=== PATIENT | male | born 1950 | race Caucasian/White ===

== ENCOUNTER 2016-09-18 10:21 | Emergency (ER) | payer OTHER, MEDICARE ==
[2016-09-18] MEDS ORDERED: Sodium Chloride 0.9% 10 ML Syringe FLUSH PRN (10:55)
[2016-09-18] MEDS ORDERED: Sodium Chloride 0.9% 1,000 ML IV ONE (10:57)
[2016-09-18] MEDS ORDERED: Ondansetron 4 MG/2 ML SDV IVPUSH ONE (10:57)
[2016-09-18 11:24] LABS: CHLORIDE,CL 105 mmol/L (98-107); SODIUM,NA 141 mmol/L (136-145)
--- NOTE | 2016-09-18 13:33 | EDM.PDOC ---
ED HPI GENERAL MEDICAL PROBLEM - General Chief Complaint: General Stated Complaint: ER FROM CLINIC Middle Epigastric Pain Score (Numeric/FACES): 2 - Related Data Allergies Allergy/AdvReac Type Severity Reaction Status Date / Time No Known Allergies Allergy Verified 09/18/16 11:02 Home Meds: Home Meds Aspirin [Halfprin] 81 mg PO DAILY 05/14/13 [History] Citalopram Hydrobromide [Celexa] 40 mg PO DAILY 05/14/13 [History] Ranitidine [Zantac] 150 mg PO BID 05/14/13 [History] traZODone 200 mg PO BEDTIME 10/08/14 [History] Docusate Sodium [Colace Clear] 50 mg BID 09/18/16 [History] Melatonin/Pyridoxine HCl (B6) [Melatonin 3 mg Tablet] 3 mg BEDTIME 09/18/16 [ History] Triamcinolone Acetonide [Triamcinolone Acetonide 0.1% Crm] 1 appful BID [History] diphenhydrAMINE [Benadryl] 25 mg PO BEDTIME 09/18/16 [History] Past Medical History HEENT History: Reports: Impaired Vision Cardiovascular History: Reports: High Cholesterol, Other (See Below) Other Cardiovascular History: Unspecified Atrial septal defect. pericarditis. hypotension Neurological History: Reports: CVA Dermatologic History: Reports: Eczema - Past Surgical History GI Surgical History: Reports: Cholecystectomy Musculoskeletal Surgical History: Reports: Arthroscopic Knee Social & Family History - Tobacco Use Smoking Status *Q: Former Smoker Years of Tobacco use: 20 Used Tobacco, but Quit: Yes Month Tobacco Last Used: unknown Second Hand Smoke Exposure: No - Alcohol Use Days Per Week of Alcohol Use: 0 - Recreational Drug Use Recreational Drug Use: No Course - Vital Signs Last Recorded V/S: Last Vital Signs Temp 37.4 C 09/18/16 10:25 Pulse 102 H 09/18/16 12:19 Resp 18 09/18/16 11:45 BP 89/61 L 09/18/16 12:19 Pulse Ox 96 09/18/16 10:25 - Orders/Labs/Meds Orders: Active Orders 24 hr Category Date Time Status EKG Documentation Completion [RC] STAT Care 09/18/16 10:55 Active Abdomen Series w Chest 1V [CR] Stat Exams 09/18/16 10:56 Taken Sodium Chloride 0.9% [Saline Flush] Med 09/18/16 10:55 Active 10 ml FLUSH ASDIRECTED PRN Peripheral IV Insertion Adult [OM.PC] Routine Oth 09/18/16 10:56 Ordered Medication Orders Sodium Chloride (Saline Flush) 10 ml FLUSH ASDIRECTED PRN PRN Reason: Keep Vein Open Labs: Laboratory Tests 09/18/16 09/18/16 09/18/16 Range/Units 10:42 10:42 10:42 WBC 16.4 H (4.0-10.0) x10^3/uL RBC 4.91 (4.5-6.0) x10^6/uL Hgb 16.2 D (14.0-18.0) g/dL Hct 45.9 (40.0-52.0) % MCV 93.5 H (78.0-93.0) fL MCH 33.0 H (26.0-32.0) pg MCHC 35.3 (32.0-36.0) g/dL RDW Coeff of Renan 12.5 (10.0-15.0) % Plt Count 184 (130-400) x10^3/uL Neut % (Auto) 90.1 H (50.0-80.0) % Lymph % (Auto) 3.8 L (25.0-50.0) % [place] % (Auto) 5.5 (2.0-11.0) % Eos % (Auto) 0.5 (0.0-4.0) % Baso % (Auto) 0.1 L (0.2-1.2) % PT 10.9 D (10.0-12.8) SEC INR 1.0 L (2.0-3.5) Sodium 141 (136-145) mmol/L Potassium 3.7 (3.5-5.1) mmol/L Chloride 105 (98-107) mmol/L Carbon Dioxide 25 (21-32) mmol/L BUN 11 (7-18) mg/dL Creatinine 1.2 (0.70-1.30) mg/dL Est Cr Clr Drug Dosing TNP Estimated GFR (MDRD) > 60 Glucose 141 H (74-106) mg/dL Calcium 8.7 (8.5-10.1) mg/dL Corrected Calcium 9.02 (8.5-10.1) mg/dL Total Bilirubin 1.3 H (0.2-1.0) mg/dL AST 18 (15-37) U/L ALT 28 (16-63) U/L Alkaline Phosphatase 72 (46-116) U/L Troponin I < 0.017 (<=0.056) ng/mL C-Reactive Protein 1.7 H (<=0.9) mg/dL Total Protein 6.6 (6.4-8.2) g/dL Albumin 3.6 (3.4-5.0) g/dL Globulin 3.0 Albumin/Globulin Ratio 1.20 TSH, Ultra Sensitive 0.487 (0.358-3.74) uIU/mL Urine Color (YELLOW) Urine Appearance (CLEAR) Urine pH (5.0-8.0) Ur Specific [place] Urine Protein (NEGATIVE) mg/dL Urine Glucose (UA) (NEGATIVE) mg/dL Urine Ketones (NEGATIVE) mg/dL Urine Occult Blood (NEGATIVE) Urine Nitrite (NEGATIVE) Urine Bilirubin (NEGATIVE) Urine Urobilinogen (0.2) EU/dL Ur Leukocyte Esterase (NEGATIVE) Urine RBC (NOT SEEN) /HPF Urine WBC (NOT SEEN) /HPF Ur Squamous Epith Cells (NEGATIVE) /HPF Urine Bacteria (NEGATIVE) /HPF Urine Mucus (NEGATIVE) /LPF 09/18/16 Range/Units 12:46 WBC (4.0-10.0) x10^3/uL RBC (4.5-6.0) x10^6/uL Hgb (14.0-18.0) g/dL Hct (40.0-52.0) % MCV (78.0-93.0) fL MCH (26.0-32.0) pg MCHC (32.0-36.0) g/dL RDW Coeff of Renan (10.0-15.0) % Plt Count (130-400) x10^3/uL Neut % (Auto) (50.0-80.0) % Lymph % (Auto) (25.0-50.0) % [place] % (Auto) (2.0-11.0) % Eos % (Auto) (0.0-4.0) % Baso % (Auto) (0.2-1.2) % PT (10.0-12.8) SEC INR (2.0-3.5) Sodium (136-145) mmol/L Potassium (3.5-5.1) mmol/L Chloride (98-107) mmol/L Carbon Dioxide (21-32) mmol/L BUN (7-18) mg/dL Creatinine (0.70-1.30) mg/dL Est Cr Clr Drug Dosing Estimated GFR (MDRD) Glucose (74-106) mg/dL Calcium (8.5-10.1) mg/dL Corrected Calcium (8.5-10.1) mg/dL Total Bilirubin (0.2-1.0) mg/dL AST (15-37) U/L ALT (16-63) U/L Alkaline Phosphatase (46-116) U/L Troponin I (<=0.056) ng/mL C-Reactive Protein (<=0.9) mg/dL Total Protein (6.4-8.2) g/dL Albumin (3.4-5.0) g/dL Globulin Albumin/Globulin Ratio TSH, Ultra Sensitive (0.358-3.74) uIU/mL Urine Color Yellow (YELLOW) Urine Appearance Clear (CLEAR) Urine pH 6.5 (5.0-8.0) Ur Specific [place] 1.010 Urine Protein Trace H (NEGATIVE) mg/dL Urine Glucose (UA) Negative (NEGATIVE) mg/dL Urine Ketones Negative (NEGATIVE) mg/dL Urine Occult Blood Negative (NEGATIVE) Urine Nitrite Negative (NEGATIVE) Urine Bilirubin Negative (NEGATIVE) Urine Urobilinogen 0.2 (0.2) EU/dL Ur Leukocyte Esterase Negative (NEGATIVE) Urine RBC Not seen (NOT SEEN) /HPF Urine WBC 0-5 (NOT SEEN) /HPF Ur Squamous Epith Cells Rare (NEGATIVE) /HPF Urine Bacteria Not seen (NEGATIVE) /HPF Urine Mucus Rare H (NEGATIVE) /LPF Meds: Medications Generic Name Dose Route Start Last Admin Trade Name Freq PRN Reason Stop Dose Admin Sodium Chloride 10 ml 09/18/16 10:55 Saline Flush FLUSH ASDIRECTED PRN Keep Vein Open Discontinued Medications Generic Name Dose Route Start Last Admin Trade Name Freq PRN Reason Stop Dose Admin Sodium Chloride 1,000 mls @ 1,000 mls/hr 09/18/16 10:57 09/18/16 10:42 Normal Saline IV 09/18/16 11:56 1,000 mls/hr .BOLUS ONE Administration Ondansetron HCl 4 mg 09/18/16 10:57 09/18/16 11:03 Zofran IVPUSH 09/18/16 10:58 4 mg ONETIME ONE Administration Departure - Discharge Information Referrals: Adrian Zamudio MD [Primary Care Provider] - Forms: ED Department Discharge, Interfacility Transfer EMTALA - My Orders Last 24 Hours: My Active Orders 09/18/16 10:55 EKG Documentation Completion [RC] STAT Sodium Chloride 0.9% [Saline Flush] 10 ml FLUSH ASDIRECTED PRN 09/18/16 10:56 Abdomen Series w Chest 1V [CR] Stat Peripheral IV Insertion Adult [OM.PC] Routine - Assessment/Plan Last 24 Hours: My Active Orders 09/18/16 10:55 EKG Documentation Completion [RC] STAT Sodium Chloride 0.9% [Saline Flush] 10 ml FLUSH ASDIRECTED PRN 09/18/16 10:56 Abdomen Series w Chest 1V [CR] Stat Peripheral IV Insertion Adult [OM.PC] Routine
[2016-09-18 18:40] VITALS: BP 89/63
--- NOTE | 2016-09-21 08:23 | ER ---
Date of Service: 09/18/2016 SUBJECTIVE: Paul presents to the emergency room with complaints of lightheadedness, weakness, and vomiting. The patient states that he has been experiencing vomiting for the past several days and had his blood pressure checked at home by Home Health and was found to have a systolic blood pressure in the 70s. The patient subsequently made an appointment at the clinic and again was found to be quite hypotensive, and they subsequently sent him to the emergency room for further evaluation and treatment. The patient states that he has a history of blood pressures on the lower side of normal with systolic blood pressures commonly in the 90s and in the low 100s systolic. He states that he is not experiencing any chest pain or shortness of breath. No fever or chills. He states he is not experiencing any acute abdominal pain, but states that he does have chronic right upper quadrant pain since his gallbladder removal. PAST MEDICAL HISTORY: 1. Atrial fibrillation. 2. Atrial septal defect. 3. Hypertension. 4. Peripheral neuropathy. 5. GERD. 6. Sleep disorder. 7. History of second-degree type-1 heart block. 8. History of intraventricular intracranial intracerebral hemorrhage. 9. Cholelithiasis and subsequent cholecystectomy. 10.Elevated PSA. 11.Chronic back pain. 12.Osteoarthrosis. 13.Insomnia. MEDICATIONS: 1. Diphenhydramine. 2. Triamcinolone cream. 3. Melatonin. 4. Docusate sodium. 5. Celexa. 6. Aspirin. 7. Trazodone. 8. Zantac. ALLERGIES: NKDA. REVIEW OF SYSTEMS: General: No fever or chills. HEENT: No sore throat, rhinorrhea, or congestion. Respiratory: No shortness of breath. Cardiac: Denies any substernal chest pain. No jaw, arm, neck, or back pain. GI: Positive for nausea and vomiting. No significant diarrhea. NEUROLOGIC: Positive for lightheadedness and weakness, but denies any loss of consciousness. No confusion. No difficulties with speech or ambulation. EXTREMITIES: Denies any increased peripheral edema. OBJECTIVE: General: This is a 66-year-old male patient, in no acute distress, initial blood pressure was approximately 70/60, heart rate 129, respiratory rate 20, O2 saturation 96% on room, temperature is 37.7. SKIN: Warm, pink, and dry. HEENT: Head is normocephalic and atraumatic. Eyes; PERRLA, extraocular movements are intact. Ears, TMs are clear. Mouth, oral mucosa is moist. Lungs: Clear to auscultation. Heart: Regular rate and rhythm. Abdomen: Soft and nontender. There is no hepatosplenomegaly noted. There are no masses noted. Extremities: Without edema. Neurologic: He is alert and oriented and answers all questions appropriately. His speech is fluent. His gait is within normal limits. LABORATORY DATA: CBC was obtained. WBCs 16.4, hemoglobin 16.2, platelets are 184. PT is 10.9, INR is 1.0. Chemistry; sodium is 148, potassium is 3.7, chloride is 105, bicarb is 25, BUN is 11, creatinine is 1.2. GFR is greater than 60. Glucose is 141. Calcium is 8.7. Corrected calcium is 9.02. Total bilirubin is 1.3. AST is 18. ALT is 28, alkaline phosphatase is 72, CRP is 1.7. Total protein is 6.6, albumin is 3.6, globulin is 3.0. TSH is 0.487. Urinalysis was obtained. Negative for ketones, occult blood, nitrites, bilirubin, urobilinogen or leukocyte esterase. ASSESSMENT: Dehydration secondary to nausea and vomiting. PLAN: The patient will be transferred to the [facility]. I spoke with Dr. Lopez, who accepted the patient in transfer. The patient will be transported by [facility] ground ambulance. We will continue IV fluids at 100 mL an hour. All questions were answered. MWK: 09/18/2016 13:23:00 MODL: 09/18/2016 14:08:04 /[id number]
== END 2016-09-18 14:00 | disposition short-term general hospital (02) ==
LOC: VM.ED 10:21
DX: E86.0 Dehydration (principal); R11.2 Nausea with vomiting, unspecified; I48.91 Unspecified atrial fibrillation; I10 Essential (primary) hypertension; K21.9 Gastro-esophageal reflux disease without esophagitis; Z90.49 Acquired absence of other specified parts of digestive tract
CPT/HCPCS: 74022; 80053; 81001; 84443; 84484; 85025; 85610; 86140; 93005; 96365; 96366; 96375; 99284; 99285; J2405; J7030

== ENCOUNTER 2019-09-17 16:01 | Emergency (ER) | payer MEDICARE, OTHER ==
[2019-09-17 16:35] VITALS: PULSE 108
--- NOTE | 2019-09-17 17:02 | EDM.PDOC ---
ED HPI GENERAL MEDICAL PROBLEM - General Chief Complaint: Gastrointestinal Problem Stated Complaint: DIARRHEA Time Seen by Provider: 09/17/19 16:20 Source of Information: Reports: Patient History Limitations: Reports: No Limitations - History of Present Illness INITIAL COMMENTS - FREE TEXT/NARRATIVE: Patient presents to ER with complaints of midepigastric pain for the last 4 days. Patient states pain seems to be worse after eating and he is hesitant about what he should eat now to prevent it. Has has awoke with heartburn symptoms at times, has taken TUMS and Zantac. [place] that the Zantac made it worse. [facility] and was advised to eat a bland diet. Ate chicken noodle soup and peanut butter sandwich yesterday but still got the discomfort. He currently has no pain. Has not noted any blood in his stools. No nausea or vomiting. Does take a stool softener but notes his stools are "pasty and soft" now. Admits that he has had pain under his ribs for the last few years, [facility] but he reports he thinks they were cardiac tests (unsure exactly what has been done". History of CVA, hypotension. No history of PUD. Has had his gallbladder removed. Onset: Gradual Duration: Day(s): Location: Reports: Abdomen Quality: Reports: Ache, Burning Severity: Moderate Worsens with: Reports: Eating Treatments PROTECTION ANALYST: Reports: Other Medication(s) Other Treatments PROTECTION ANALYST: famotidine, tums, prune juice - Related Data Allergies Allergy/AdvReac Type Severity Reaction Status Date / Time No Known Allergies Allergy Verified 09/18/16 11:02 Home Meds: Home Meds Aspirin [Halfprin] 81 mg PO DAILY 05/14/13 [History] Citalopram Hydrobromide [Celexa] 40 mg PO DAILY 05/14/13 [History] Ranitidine [Zantac] 150 mg PO BID 05/14/13 [History] traZODone 200 mg PO BEDTIME 10/08/14 [History] Docusate Sodium [Colace Clear] 50 mg BID 09/18/16 [History] Melatonin/Pyridoxine HCl (B6) [Melatonin 3 mg Tablet] 3 mg BEDTIME 09/18/16 [ History] Triamcinolone Acetonide [Triamcinolone Acetonide 0.1% Crm] 1 appful BID [History] diphenhydrAMINE [Benadryl] 25 mg PO BEDTIME 09/18/16 [History] Past Medical History HEENT History: Reports: Impaired Vision Cardiovascular History: Reports: High Cholesterol, Other (See Below) Other Cardiovascular History: Unspecified Atrial septal defect. pericarditis. hypotension Neurological History: Reports: CVA Dermatologic History: Reports: Eczema - Past Surgical History GI Surgical History: Reports: Cholecystectomy Musculoskeletal Surgical History: Reports: Arthroscopic Knee Social & Family History - Tobacco Use Smoking Status *Q: Former Smoker Used Tobacco, but Quit: Yes Month/Year Tobacco Last Used: 1994 - Recreational Drug Use Recreational Drug Use: No ED ROS GENERAL - Review of Systems Review Of Systems: See Below Constitutional: Reports: Weakness. Denies: Fever, Chills, Malaise, Decreased Appetite HEENT: Denies: Ear Pain, Rhinitis, Throat Pain, Vertigo Respiratory: Denies: Shortness of Breath, Cough Cardiovascular: Denies: Chest Pain, Edema, Lightheadedness Endocrine: Denies: Fatigue GI/Abdominal: Reports: Abdominal Pain. Denies: Black Stool, Bloody Stool, Nausea, Vomiting : Denies: Dysuria Musculoskeletal: Reports: No Symptoms Skin: Reports: No Symptoms Neurological: Reports: Weakness ED EXAM, GI/ABD - Physical Exam Exam: See Below Exam Limited By: No Limitations General Appearance: Alert, WD/WN, No Apparent Distress Ears: Normal External Exam, Normal TMs Nose: Normal Inspection, Normal Mucosa, No Blood Throat/Mouth: Normal Inspection, Normal Oropharynx Head: Normocephalic Neck: Normal Inspection, Supple, Non-Tender Respiratory/Chest: No Respiratory Distress, Lungs Clear, Normal Breath Sounds Cardiovascular: Regular Rate, Rhythm GI/Abdominal Exam: Normal Bowel Sounds, Soft, Tender (mild midepigastric discomfort with palpation) Extremities: Normal Inspection, Pedal Edema (trace) Neurological: Alert, Oriented Skin Exam: Warm, Dry Course - Vital Signs Last Recorded V/S: Last Vital Signs Temp 99 F 09/17/19 16:10 Pulse 108 H 09/17/19 16:10 Resp 16 09/17/19 16:10 BP 131/95 H 09/17/19 16:10 Pulse Ox 96 09/17/19 16:10 - Orders/Labs/Meds Orders: Active Orders 24 hr Category Date Time Status Pantoprazole [ProTONIX] Med 09/17/19 17:59 Once 40 mg PO ONETIME ONE Labs: Laboratory Tests 09/17/19 09/17/19 09/17/19 Range/Units 17:02 17:02 17:39 WBC 6.7 (4.0-10.0) x10^3/uL RBC 4.54 (4.5-6.0) x10^6/uL Hgb 15.0 (14.0-18.0) g/dL Hct 42.7 (40.0-52.0) % MCV 94.1 H (78.0-93.0) fL MCH 33.0 H (26.0-32.0) pg MCHC 35.1 (32.0-36.0) g/dL RDW Coeff of Renan 12.1 (10.0-15.0) % Plt Count 177 (130-400) x10^3/uL Neut % (Auto) 64.2 (50.0-80.0) % Lymph % (Auto) 18.9 L (25.0-50.0) % [place] % (Auto) 13.1 H (2.0-11.0) % Eos % (Auto) 3.4 (0.0-4.0) % Baso % (Auto) 0.4 (0.2-1.2) % Sodium 146 H (136-145) mmol/L Potassium 3.7 (3.5-5.1) mmol/L Chloride 108 H (98-107) mmol/L Carbon Dioxide 27 (21-32) mmol/L Anion Gap 14.7 (10-20) mmol/L BUN 12 (7-18) mg/dL Creatinine 1.0 (0.70-1.30) mg/dL Est Cr Clr Drug Dosing TNP Estimated GFR (MDRD) > 60 Glucose 110 H (74-106) mg/dL Calcium 9.4 (8.5-10.1) mg/dL Corrected Calcium 9.48 (8.5-10.1) mg/dL Total Bilirubin 0.7 (0.2-1.0) mg/dL AST 18 (15-37) U/L ALT 21 (16-63) U/L Alkaline Phosphatase 76 (46-116) U/L C-Reactive Protein 0.7 (<=0.9) mg/dL Total Protein 7.1 (6.4-8.2) g/dL Albumin 3.9 (3.4-5.0) g/dL Globulin 3.2 Albumin/Globulin Ratio 1.22 Amylase 56 (25-115) U/L Lipase 166 (73-393) U/L Urine Color Dark yellow H (YELLOW) Urine Appearance Clear (CLEAR) Urine pH 6.5 (5.0-8.0) Ur Specific [place] 1.025 Urine Protein Negative (NEGATIVE) mg/dL Urine Glucose (UA) Negative (NEGATIVE) mg/dL Urine Ketones Negative (NEGATIVE) mg/dL Urine Occult Blood Negative (NEGATIVE) Urine Nitrite Negative (NEGATIVE) Urine Bilirubin Negative (NEGATIVE) Urine Urobilinogen 0.2 (0.2) EU/dL Ur Leukocyte Esterase Negative (NEGATIVE) - Re-Assessments/Exams Free Text/Narrative Re-Assessment/Exam: 09/17/19 18:00 Labs are all essentially normal/stable. Xray normal. Will start patient on Protonix, [facility] May need to consider EGD or further testing if discomfort continues. Departure - Departure Time of Disposition: 18:01 Disposition: Home, Self-Care 01 Clinical Impression: Postprandial epigastric pain - Discharge Information *PRESCRIPTION DRUG MONITORING PROGRAM REVIEWED*: No *COPY OF PRESCRIPTION DRUG MONITORING REPORT IN PATIENT MICHELLE: No Instructions: Abdominal Pain, Adult, [id number] Referrals: PCP,None [Primary Care Provider] - Forms: ED Department Discharge Additional Instructions: 1. Push fluids 2. [place] diet 3. Start Protonix 40 mg daily in the am prior to eating 4. Sit upright for 30 minutes after eating, try not to eat after supper 5. Follow up at the [place] for ongoing concerns, may need further testing, such as a scope to look in to esophagus and stomach 6. Call with any questions or concerns. Sepsis Event Note - Evaluation Sepsis Screening Result: No Definite Risk - Focused Exam Vital Signs: Vital Signs Temp Pulse Resp BP Pulse Ox 09/17/19 16:10 99 F 108 H 16 131/95 H 96 Date Exam was Performed: 09/17/19 Time Exam was Performed: 17:59 - My Orders Last 24 Hours: My Active Orders 09/17/19 17:59 Pantoprazole [ProTONIX] 40 mg PO ONETIME ONE - Assessment/Plan Last 24 Hours: My Active Orders 09/17/19 17:59 Pantoprazole [ProTONIX] 40 mg PO ONETIME ONE
[2019-09-17 17:27] LABS: ANION GAP 14.7 mmol/L (10-20); CHLORIDE,CL 108 mmol/L (98-107); SODIUM,NA 146 mmol/L (136-145)
--- NOTE | 2019-09-17 17:53 | CR ---
[id number] RAD/RAD Abd Flat and Upright 2V EXAM: RAD Abd Flat and Upright 2V INDICATION: ABDOMINAL PAIN. COMPARISON: September 18, 2016. DISCUSSION: No bowel dilation, free air or pneumatosis is identified. Cholecystectomy clips in the upper abdomen. Degenerative changes are noted in the spine. Arterial calcifications. IMPRESSION: 1. Normal bowel gas pattern. Billy Keller MD 09/17/19 [id number] Thank you for allowing us to participate in the care of your patient.
[2019-09-17] MEDS ORDERED: Pantoprazole 40 MG Tab.CR PO ONE (17:59)
[2019-09-17 18:36] VITALS: BP 162/95
== END 2019-09-17 18:15 | disposition home or self-care (01) ==
LOC: VM.ED 16:01
DX: R10.13 Epigastric pain (principal); Z79.82 Long term (current) use of aspirin; Z79.899 Other long term (current) drug therapy; Z86.73 Personal history of transient ischemic attack (TIA), and cerebral infarction without residual deficits; Z87.891 Personal history of nicotine dependence
CPT/HCPCS: 36415; 74019; 80053; 81003; 82150; 83690; 85025; 86140; 99284; 99284-GF; A9270-GY

== ENCOUNTER 2022-07-12 16:52 | Emergency (ER) | payer OTHER ==
[2022-07-12 18:27] LABS: ANION GAP 9.1 mmol/L (5-15)
[2022-07-12 19:19] VITALS: BP 157/80; PULSE 74
== END 2022-07-12 19:15 | disposition short-term general hospital (02) ==
LOC: VM.ED 16:52
DX: I44.2 Atrioventricular block, complete (principal); Z86.73 Personal history of transient ischemic attack (TIA), and cerebral infarction without residual deficits; Z79.82 Long term (current) use of aspirin; Z87.891 Personal history of nicotine dependence
CPT/HCPCS: 80053; 84484; 85025; 93010; 99285